=== PATIENT | male | born 1945 | race Hispanic/Latino ===

== ENCOUNTER 2022-03-12 13:36 | Outpatient (CLI) | payer MEDICARE | END 2022-03-12 13:37 | disposition home or self-care (01) | LOC: BICRAD 13:36 | PROVIDERS: ATTEND Nurse Practitioner Family | DX: R06.02 Shortness of breath (principal); N40.0 Benign prostatic hyperplasia without lower urinary tract symptoms | CPT/HCPCS: 71046 ==

== ENCOUNTER 2022-04-03 15:54 | Outpatient (CLI) | payer MEDICARE | END 2022-04-03 15:55 | disposition home or self-care (01) | LOC: BICRAD 15:54 | PROVIDERS: ATTEND Internal Medicine Medical Oncology | DX: R63.4 Abnormal weight loss (principal); D69.2 Other nonthrombocytopenic purpura; D64.9 Anemia, unspecified | CPT/HCPCS: 71046 ==